=== PATIENT | male | born 1990 | race Hispanic/Latino ===

== ENCOUNTER 2016-10-19 20:26 | Emergency (ER) | payer BC ==
[2016-10-19] MEDS ORDERED: Adacel (T-DAP) 0.5 ML VIAL ONE (20:36)
== END 2016-10-19 20:42 | disposition home or self-care (01) ==
LOC: EDBD 20:26 → NAV ERS 20:26
DX: S91.331A Puncture wound without foreign body, right foot, initial encounter (principal); X58.XXXA Exposure to other specified factors, initial encounter
CPT/HCPCS: 90471; 90715